=== PATIENT | female | born 1965 | race Native Hawaiian/Other Pacific Islander ===

== ENCOUNTER 2020-08-31 08:37 | Outpatient (CLI) | payer OTHER ==
[~2020-08-31 08:37] MED LIST: BUPR150T PO; BUPROPN HCL300 MG PO; CEFTIN500 MG OR; HYDROCO/APAP1 T14 PO; LEVOTHROID50 MCG OR; MELO-13 PO; WELLBUTRI1 PO
[2020-08-31 09:39] LABS: PLATELET COUNT 307 K/uL (152-353)
[2020-08-31 10:01] LABS: POTASSIUM 4.1 mmol/L (3.6-5.2)
== END 2020-08-31 21:11 | disposition home or self-care (01) ==
LOC: LABW 08:37
PROVIDERS: ATTEND Internal Medicine
DX: Z01.84 Encounter for antibody response examination (principal); J96.00 Acute respiratory failure, unspecified whether with hypoxia or hypercapnia
CPT/HCPCS: 36415; 80053; 83880; 85027; 85379; 86769

== ENCOUNTER 2022-07-30 08:44 | Outpatient (CLI) | payer OTHER | END 2022-07-30 19:05 | disposition home or self-care (01) | LOC: MAMMO 08:44 | PROVIDERS: ATTEND Obstetrics & Gynecology | DX: Z12.31 Encounter for screening mammogram for malignant neoplasm of breast (principal) ==

== ENCOUNTER 2023-02-12 09:26 | Outpatient (CLI) | payer OTHER | END 2023-02-12 20:01 | disposition home or self-care (01) | LOC: RAD 09:26 | PROVIDERS: ATTEND Internal Medicine | DX: Z13.820 Encounter for screening for osteoporosis (principal) ==